=== PATIENT | female | born 1995 | race Caucasian/White ===

== ENCOUNTER 2019-06-15 21:09 | Outpatient (REF) | payer MEDICAID, SELFPAY ==
[2019-06-15 21:57] LABS: Bilirubin Negative (Negative); Blood Trace-intact (Negative); Clarity Clear (Clear); Glucose Negative (Negative); Ketones Negative (Negative); Leukocyte Esterase Negative (Negative); Nitrite Negative (Negative); Urobilinogen 0.2 EU/dL (Up TO 0.2)
[2019-06-15 22:08] LABS: Epithelial Cells Negative HPF (Negative); RBC 0-2 HPF (0-2); WBC 0-2 HPF (0-5)
[2019-06-15 22:09] LABS: Bacteria Negative HPF (Negative); C & S Indicated? No; Crystals Negative HPF (Negative); Mucus Negative (Negative)
== END 2019-06-15 21:29 ==
LOC: NCHCN 21:09
PROVIDERS: PCP Family Medicine; Visit Provider Nurse Practitioner Family
DX: N20.0 Calculus of kidney (principal); Z33.1 Pregnant state, incidental
CPT/HCPCS: 81003; 81015

== ENCOUNTER 2021-02-10 22:10 | Outpatient (REF) | payer MEDICAID, SELFPAY ==
[2021-02-12 13:14] LABS: COVID-19 RT-PCR UVMMC Result Negative (Negative)
== END 2021-02-10 22:11 | disposition home or self-care (01) ==
LOC: NCHCN 22:10
PROVIDERS: PCP Family Medicine; Visit Provider Nurse Practitioner Family
DX: Z20.822 Contact with and (suspected) exposure to COVID-19 (principal)
CPT/HCPCS: U0003

== ENCOUNTER 2022-07-28 15:42 | Outpatient (REF) | payer MEDICAID, SELFPAY ==
[2022-07-28 22:20] LABS: Cholesterol 165 mg/dL (<200); HDL Cholesterol 43 mg/dL (40-60); Triglyceride 413 mg/dL (<150)
[2022-07-28 22:59] LABS: LDL CHOLESTEROL 85 mg/dL (<100)
== END 2022-07-28 15:43 | disposition home or self-care (01) ==
LOC: NCHCN 15:42
PROVIDERS: PCP Family Medicine; Visit Provider Family Medicine
DX: R73.03 Prediabetes (principal); E66.8 Other obesity; Z13.220 Encounter for screening for lipoid disorders
CPT/HCPCS: 80061; 83721; 83036

== ENCOUNTER 2023-10-26 18:43 | Outpatient (REF) | payer MEDICAID, SELFPAY ==
[2023-10-26 21:16] LABS: Bilirubin Negative (Negative); Blood Trace-intact (Negative); Clarity Clear (Clear); Glucose Negative (Negative); Ketones Negative (Negative); Leukocyte Esterase Negative (Negative); Nitrite Negative (Negative); Specific Gravity 1.015 (1.005-1.025); Urobilinogen 0.2 mg/dL (Up to 0.2); pH 6.5 (5-8)
[2023-10-26 21:25] LABS: TSH (W/Ref FT4) 1.14 uIU/mL (0.36-3.74)
[2023-10-26 21:26] LABS: Bacteria Negative HPF (Negative); C & S Indicated? No; Casts Negative LPF (Negative); Crystals Negative HPF (Negative); Epithelial Cells Rare HPF (Negative); Mucus Negative (Negative); RBC 0-2 HPF (0-2); WBC 0-2 HPF (0-5)
== END 2023-10-26 18:44 | disposition home or self-care (01) ==
LOC: NCHCN 18:43
PROVIDERS: PCP Family Medicine; Visit Provider Physician Assistant
DX: R42 Dizziness and giddiness (principal); F41.8 Other specified anxiety disorders; R31.21 Asymptomatic microscopic hematuria
CPT/HCPCS: 81003; 81015; 84443